=== PATIENT | male | born 1980 | race Two or more races ===

== ENCOUNTER 2021-11-20 16:38 | Emergency (ER) | payer MEDICAID ==
[~2021-11-20] VITALS: Ht 180.3 cm; Wt 106.8 kg
[2021-11-20] MEDS ORDERED: CLINDAMYCIN HCL 150 MG CAPSULE PO ONE (20:30)
[2021-11-20] MEDS ORDERED: CLIN300C58 PO (21:24)
[2021-11-20 21:44] VITALS: BP 115/82
== END 2021-11-20 21:46 | disposition home or self-care (01) ==
LOC: EMS 16:38
DX: S91.202A Unspecified open wound of left great toe with damage to nail, initial encounter (principal); F17.210 Nicotine dependence, cigarettes, uncomplicated; X58.XXXA Exposure to other specified factors, initial encounter; Y93.89 Activity, other specified; Y92.89 Other specified places as the place of occurrence of the external cause; Y99.8 Other external cause status
CPT/HCPCS: 99283